=== PATIENT | female | born 1945 | race Asian ===

== ENCOUNTER 2019-11-20 07:51 | Day surgery (SDC) | payer OTHER, MEDICARE ==
[2019-11-18 16:10] VITALS: BMI 26.6
--- OUTSIDE RECORDS SUMMARY | 2019-11-20 07:55 | XMS ---
:1945 Author Organization [facility] Care Team Providers Name Role Phone ROE Vega Unavailable Unavailable MD Aliza Unavailable Unavailable Re-disclosure Warning The records that you are about to access may contain information from federally- assisted alcohol or drug abuse programs. If such information is present, then the following federally mandated warning applies: This information has been disclosed to you from records protected by federal confidentiality rules (42 CFR part 2). The federal rules prohibit you from making any further disclosure of this information unless further disclosure is expressly permitted by the written consent of the person to whom it pertains or as otherwise permitted by 42 CFR part 2. A general authorization for the release of medical or other information is NOT sufficient for this purpose. The Federal rules restrict any use of the information to criminally investigate or prosecute any alcohol or drug abuse patient.The records that you are about to access may contain highly sensitive health information, the redisclosure of which is protected by Article 27-F of the [facility] Public Health law. If you continue you may haveaccess to information: Regarding HIV / AIDS; Provided by facilities licensed or operated by the [facility] Office of Mental Health; or Provided by the [facility] Office for People With Developmental Disabilities. If such information is present, then the following [facility] mandated warning applies: This information has been disclosed to you from confidential records which are protected by state law. State law prohibits you from making any further disclosure of this information without the specific written consent of the person to whom it pertains, or as otherwise permitted by law. Any unauthorized further disclosure in violation of state law may result in a fine or long term sentence or both. A general authorization for the release of medical or other information is NOT sufficient authorization for further disclosure. Allergies and Adverse Reactions Type Description Substance Reaction Status Data Source(s ) Food allergy crab crab URTICARIA/HIVES [facility] Encounters Encounter Providers Location Date Indications Data Source(s ) Emergency Attender: Dottie 04/22/2019 R/O PUI ARR-AUTO W [facility] [place] Sil[facility] 10:02:00 AM Hospital EDT - 04/22/2019 11:00:00 AM EDT R/O PUI ARR-AUTO Patient discharged. Outpatient Attender: 01/11/2019 12:19:00 PANCREATIC LESIO N [place] Georgette Abrams PM EST Hospita l PANCREATIC LESION Outpatient Attender: Georgette 01/02/2019 07:07:00 AM [facility] Aliza KUMAR Outpatient Attender: Georgette 12/25/2018 01:59:00 PM [facility] Aliza KUMAR Medications Medication Brand Start Product Dose Route Administrative Pharmacy [facility] Indications Reaction Description Data Name Date Form Instructions Instructions Source(s) doxycycline Doxycy 04/21/ CAPSULE, 100 ORAL active White hyclate 100 palacio 2020 DELAYED mg Plai ns MG Oral Hyclat 10:58: RELEASE Hospi ruben Capsule e 00 AM [Vibramycin EDT ] Doxycycline Hyclate Insurance Providers Payer name Policy type Policy ID Covered Covered constitution party's Policy P rowdy / Coverage constitution party ID relationship to [place] Inf ormation type [place] MEDICARE [id number] SP [id number] J23 [facility] [id number] SP [id number] CARE OPTIONS MEDICARE [id number] SP [id number] [place] [id number] SP [id number] HEALTHCARE (MEDICARE) MEDICARE [id number] SP [id number] J23 [facility] [id number] PT [id number] CARE [employer] MEDICARE [id number] PT [id number] J23 Problems, Conditions, and Diagnoses Code Display Name Description Problem Type Effective Dates Data Source(s) E78.5 Hyperlipidemia, E78.5 Diagnosis 04/22/2019 [facility] ins unspecified 10:22:00 AM EDT Hospital I10 Essential (primary) I10 Diagnosis 04/22/2019 [place] hypertension 10:22:00 AM EDT Hospita l E11.9 Type 2 diabetes E11.9 Diagnosis 04/22/2019 [facility] ins mellitus without 10:22:00 AM EDT Hos pital complications R05 Cough R05 Diagnosis 04/22/2019 [place] 10:22:00 AM EDT Hospital Z03.89 Encounter for Z03.89 Diagnosis 01/11/2019 [facility] observation for other 12:19:00 PM T Hospital suspected diseases and conditions ruled out Surgeries/Procedures Procedure Description Date Indications Data Source(s) Plain chest X-ray 04/22/2019 [facility] (procedure) 12:00:00 AM EDT Results ID Date Data Source [id number] 11/16/2019 12:59:00 PM EDT [facility] Name Value Range Interpretation Description Data Sup porting Code Source(s) Document(s ) SARS [facility] coronavirus 2 RNA This lab was ordered by NICOLE gonzáles [facility] and reported by [facility]. ID Date Data Source [id number] 04/22/2019 10:11:00 AM EDT [facility] International Marketing Manager:CONY BARRERA Name Value Range Interpretation Description Data Sup porting Code Source(s) Document(s ) Glucose 196 mg/dL [place] [Mass/volume] [facility] in Capillary blood by Glucometer Procedure Social History Code Duration Value Status Description Data Source(s ) Smoking 04/22/2019 Never smoked completed Never smoked [facility] ns 10:28:00 AM EDT tobacco tobacco (finding) Ho spital (finding) Vital Signs ID Date Data Source UNK Name Value Range Interpretation Code Description Data Source(s) Diastolic blood 91 mm[Hg] 91 mm[Hg] Health system pressure Hospital Systolic blood 151 mm[Hg] 151 mm[Hg] [facility] pressure Hospital Respiratory rate 18 /min 18 /min [facility] Heart rate 89 /min 89 /min [facility] Body temperature 36.73293 36.98727 [facility]ony [facility] Body temperature 98.0 [degF] 98.0 [degF] [facility] Body mass index 24.0 kg/m2 24.0 kg/m2 [facility] ins (BMI) [Ratio] Hospital Body weight 119.25 119.25 [lb_av] [facility] ins [lb_av] Hospital
[2019-11-20] MEDS: CYCLOPENTOLATE 2% OPHTH SOLN 2 ML BOTTLE ONE ×3 (08:45→08:55)
[2019-11-20] MEDS: TROPICAMIDE 1% OPHTH SOLN 15 ML BOTTLE ONE ×3 (08:45→08:55)
[2019-11-20] MEDS: CIPROFLOXACIN 0.3% EYE DROPS 5 ML BOTTLE ONE ×3 (08:45→08:55)
[2019-11-20] MEDS: PHENYLEPHRINE 2.5% OPHTH SOLN 15 ML BOTTLE ONE ×3 (08:45→08:55)
[2019-11-20] MEDS ORDERED: MIDAZOLAM HCL 2 MG/2 ML SINGLE DOSE VIAL ONE (09:22)
[2019-11-20] MEDS ORDERED: ONDANSETRON 4 MG/2 ML VIAL ONE (09:22)
[2019-11-20] MEDS ORDERED: DESFLURANE GAS 240 ML BOTTLE IH ONE (09:30)
[2019-11-20] MEDS ORDERED: SEVOFLURANE 250 ML BTL ONE (09:30)
--- NOTE | 2019-11-20 10:24 | OP ---
DATE OF OPERATION: 11/20/2019 OPERATIVE PROCEDURE: Lens phacoemulsification with posterior chamber intraocular lens placement, right eye. PREOPERATIVE DIAGNOSIS: Visually significant cataract of right eye. POSTOPERATIVE DIAGNOSIS: Visually significant cataract of right eye. SURGEON: Cristian Morgan M.D. ANESTHESIA: MAC. PROCEDURE: The patient was brought to the operating room and placed under monitored anesthesia care by Anesthesia. A drop of tetracaine was then placed over the right eye. The patient was then prepped and draped in the usual sterile manner. A speculum was then placed over the right eye. The eye was then well irrigated with copious amounts of BSS (balanced salt solution). The operating microscope was then moved into position. A paracentesis was performed using a 15-degree blade. At this point 0.5 mL of 1% preservative-free lidocaine was injected into the anterior chamber. Amvisc Plus was then injected into the anterior chamber. A clear corneal incision was then formed using a 2.2-mm keratome. A capsulorrhexis was then performed in a continuous circular fashion beginning with a cystotome completed with a Utrata forceps. Hydrodissection was then performed using BSS on a cannula. The phaco probe was then introduced through the corneal wound and the cataract was removed using the phaco chop technique. Approximately 3 seconds of absolute phaco time was used. The remaining cortex was then removed using irrigation and aspiration with an I/A probe. The capsule was then filled with regular Amvisc and the capsule was noted to be intact. A previously selected foldable posterior chamber intraocular lens was then injected into the capsule through the corneal wound using a lens injector. It was then dialed into position using a Sinskey hook. The Amvisc was then removed using irrigation and aspiration. Miostat was then injected through the paracentesis to constrict the pupil. The paracentesis and corneal wound were then hydrated and noted to be watertight. A drop of Maxitrol was then placed over the eye. The speculum was removed and clear shield was taped over the eye. The patient tolerated the procedure well and there were no surgical complications. The patient was asked to follow up in my office the next day. CRISTIAN MORGAN M.D. ASHOK/[id number]
[2019-11-20 10:29] VITALS: TEMP 98.9
[2019-11-20 10:46] VITALS: BP 128/69; PULSE 62
[2019-11-20] MEDS ORDERED: LIDOCAINE 1% P/F 10 MG/ML VIAL ONE (11:37)
[2019-11-20] MEDS ORDERED: TETRACAINE 0.5% OPHTH SOLN 2 ML BOTTLE ONE (11:37)
[2019-11-20] MEDS ORDERED: NEO/POLYMYX B SULF/DEXAMETH OPHTHALMIC 5ML BOTTLE ONE (11:38)
[2019-11-20] MEDS ORDERED: CARBACHOL 0.01% INTRA-OCULAR 1.5 ML VIAL ONE (11:38)
[2019-11-20] MEDS ORDERED: BSS (NA/CA/MG/K) BALANCED SALT SOLUTION OPHTH SOLN 15 ML BOTTLE ONE (11:38)
== END 2019-11-20 10:50 | disposition home or self-care (01) ==
LOC: FASU 07:51
PROVIDERS: ATTEND Ophthalmology
PROC: 08RJ3JZ Replacement of Right Lens with Synthetic Substitute, Percutaneous Approach (ICD-10-PCS; principal; 2019-11-20 09:50)
DX: H26.8 Other specified cataract (principal)
CPT/HCPCS: 82962

== ENCOUNTER 2019-12-11 06:59 | Day surgery (SDC) | payer OTHER, MEDICARE ==
--- OUTSIDE RECORDS SUMMARY | 2019-11-27 15:13 | XMS ---
:1945 Author Organization [facility] Care Team Providers Name Role Phone ROE [...] is protected by Article 27-F of the [facility] Public Health law. If you continue you may haveaccess to information: Regarding HIV / AIDS; Provided by facilities licensed or operated by the [facility] Office of Mental Health; or Provided by the [facility] Office for People With Developmental Disabilities. If such information is present, then the following [facility] mandated warning applies: This information has [...] law may result in a fine or retirement sentence or both. A general authorization for the release of medical or other information is NOT sufficient authorization for further disclosure. Allergies and Adverse Reactions Type Description Substance Reaction Status Data Source(s ) Food allergy crab crab URTICARIA/HIVES [facility] Encounters Encounter Providers Location Date Indications Data Source(s ) Emergency Attender: Dottie 04/22/2019 R/O PUI ARR-AUTO W sajan [place] Silvia 10:02:00 AM Hospital EDT - 04/22/2019 11:00:00 AM EDT R/O PUI ARR-AUTO Patient discharged. Outpatient Attender: 01/11/2019 12:19:00 PANCREATIC LESIO N [place] Georgette Abrams PM EST Hospita l PANCREATIC LESION Outpatient Attender: Georgette 01/02/2019 07:07:00 AM [facility] Aliza KUMAR Outpatient Attender: Georgette 12/25/2018 01:59:00 PM [facility] Aliza KUMAR Medications Medication Brand Start Product Dose Route Administrative Pharmacy [facility] Indications Reaction Description Data Name Date Form Instructions Instructions Source(s) doxycycline Doxycy 04/21/ CAPSULE, 100 ORAL active White hyclate 100 palacio 2020 DELAYED mg Plai ns MG Oral Hyclat 10:58: RELEASE Hospi ruben Capsule e 00 AM [Vibramycin EDT ] Doxycycline Hyclate Insurance Providers Payer name Policy type Policy ID Covered Covered democrat's Policy P rowdy / Coverage democrat ID relationship to [place] Inf ormation type [place] MEDICARE [id number] SP [id number] J23 [facility] [id number] SP [id number] CARE OPTIONS MEDICARE [id number] SP [id number] [id number] SP [id number] HEALTHCARE (MEDICARE) MEDICARE [id number] SP [id number] J23 [facility] [id number] PT [id number] CARE [employer] MEDICARE [id number] PT [id number] J23 Problems, Conditions, and Diagnoses Code Display Name Description Problem Type Effective Dates Data Source(s) E78.5 Hyperlipidemia, E78.5 Diagnosis 04/22/2019 [facility] ins unspecified 10:22:00 AM EDT Hospital I10 Essential (primary) I10 Diagnosis 04/22/2019 [place] hypertension 10:22:00 AM EDT Hospita l E11.9 Type 2 diabetes E11.9 Diagnosis 04/22/2019 [facility] ins mellitus without 10:22:00 AM EDT Hos pital complications R05 Cough R05 Diagnosis 04/22/2019 [place] 10:22:00 AM EDT Hospital Z03.89 Encounter for Z03.89 Diagnosis 01/11/2019 [facility] observation for other 12:19:00 PM T Hospital suspected diseases and conditions ruled out Surgeries/Procedures Procedure Description Date Indications Data Source(s) Plain chest X-ray 04/22/2019 [facility] (procedure) 12:00:00 AM EDT Results ID Date Data Source [id number] 11/16/2019 12:59:00 PM EDT [facility] Name Value Range Interpretation Description Data Sup porting Code Source(s) Document(s ) SARS [facility] coronavirus 2 RNA This lab was ordered by NICOLE gonzáles [facility] and reported by [facility]. ID Date Data Source [id number] 04/22/2019 10:11:00 AM EDT [facility] Principal Cloud Architect:CONY BARRERA Name Value Range Interpretation Description Data Sup porting Code Source(s) Document(s ) Glucose 196 mg/dL [place] [Mass/volume] [facility] in Capillary blood by Glucometer Procedure Social History Code Duration Value Status Description Data Source(s ) Smoking 04/22/2019 Never smoked completed Never smoked [facility] ns 10:28:00 AM EDT tobacco tobacco (finding) Ho spital (finding) Vital Signs ID Date Data Source UNK Name Value Range Interpretation Code Description Data Source(s) Diastolic blood 91 mm[Hg] 91 mm[Hg] [facility] pressure Hospital Systolic blood 151 mm[Hg] 151 mm[Hg] [facility] pressure Hospital Respiratory rate 18 /min 18 /min [facility] Heart rate 89 /min 89 /min [facility] Body temperature 36.85677 36.40946 Melony [facility] Body temperature 98.0 [degF] 98.0 [degF] [facility] Body mass index 24.0 kg/m2 24.0 kg/m2 [facility] ins (BMI) [Ratio] Hospital Body weight 119.25 119.25 [lb_av] Storm[facility] ins [lb_av] Hospital
[2019-12-04 16:54] VITALS: BMI 26.6
--- OUTSIDE RECORDS SUMMARY | 2019-12-11 07:12 | XMS ---
:1945 Author Organization [facility] Care Team Providers Name Role Phone [...] is protected by Article 27-F of the [facility] Public Health law. If you continue you may haveaccess to information: Regarding HIV / AIDS; Provided by facilities licensed or operated by the [facility] Office of Mental Health; or Provided by the [facility] Office for People With Developmental Disabilities. If such information is present, then the following [facility] mandated warning applies: This information has been [...] law may result in a fine or halfway sentence or both. A general authorization for the release of medical or other information is NOT sufficient authorization for further disclosure. Allergies and Adverse Reactions Type Description Substance Reaction Status Data Source(s ) Food allergy crab crab URTICARIA/HIVES [facility] Encounters Encounter Providers Location Date Indications Data Source(s ) Emergency Attender: Dottie 04/22/2019 R/O PUI ARR-AUTO W [facility] Silvia 10:02:00 AM Hospital EDT - 04/22/2019 11:00:00 AM EDT R/O PUI ARR-AUTO Patient discharged. Outpatient Attender: 01/11/2019 12:19:00 PANCREATIC LESIO N [place] Georgette Abrams PM EST Hospita l PANCREATIC LESION Outpatient Attender: Georgette 01/02/2019 07:07:00 AM [facility] Aliza KUMAR Outpatient Attender: Georgette 12/25/2018 01:59:00 PM [facility] Aliza KUMAR Medications Medication Brand Start Product Dose Route Administrative Pharmacy [facility] Indications Reaction Description Data Name Date Form Instructions Instructions Source(s) doxycycline Doxycy 04/21/ CAPSULE, 100 ORAL active White hyclate 100 palacio 2020 DELAYED mg Plai ns MG Oral Hyclat 10:58: RELEASE Hospi ruben Capsule e 00 AM [Vibramycin EDT ] Doxycycline Hyclate Insurance Providers Payer name Policy type Policy ID Covered Covered green party's Policy P rowdy / Coverage green party ID relationship to [place] Inf ormation type [place] MEDICARE [id number] SP [id number] J23 [facility] [id number] SP [id number] CARE [employer]IONS MEDICARE [id number] SP [id number] J23 MEDICARE [id number] SP [id number] [place] [id number] SP [id number] HEALTHCARE (MEDICARE) MEDICARE [id number] SP [id number] J23 [facility] [id number] PT [id number] CARE [employer] MEDICARE [id number] PT [id number] J23 Problems, Conditions, and Diagnoses Code Display Name Description Problem Type Effective Dates Data Source(s) E78.5 Hyperlipidemia, E78.5 Diagnosis 04/22/2019 [facility] ins unspecified 10:22:00 AM EDT Hospital I10 Essential (primary) I10 Diagnosis 04/22/2019 [place] hypertension 10:22:00 AM EDT Hospita l E11.9 Type 2 diabetes E11.9 Diagnosis 04/22/2019 [facility] ins mellitus without 10:22:00 AM EDT Hos pital complications R05 Cough R05 Diagnosis 04/22/2019 [place] 10:22:00 AM EDT Hospital Z03.89 Encounter for Z03.89 Diagnosis 01/11/2019 [facility] observation for other 12:19:00 PM ES T Hospital suspected diseases and conditions ruled out Surgeries/Procedures Procedure Description Date Indications Data Source(s) Plain chest X-ray 04/22/2019 [facility] Hospital (procedure) 12:00:00 AM EDT Results ID Date Data Source [id number] 12/07/2019 09:12:00 AM EDT [facility] Name Value Range Interpretation Description Data Sup porting Code Source(s) Document(s ) SARS [facility] coronavirus 2 RNA This lab was ordered by [facility] and reported by [facility]. ID Date Data Source [id number] 11/16/2019 12:59:00 PM EDT [facility] Name Value Range Interpretation Description Data Sup porting Code Source(s) Document(s ) SARS [facility] coronavirus 2 RNA This lab was ordered by [facility] and reported by [facility]. ID Date Data Source [id number] 04/22/2019 10:11:00 AM EDT [facility] Steam Press Operator:CONY BARRERA Name Value Range Interpretation Description Data Sup porting Code Source(s) Document(s ) Glucose 196 mg/dL [place] [Mass/volume] [facility] in Capillary blood by Glucometer Procedure Social History Code Duration Value Status Description Data Source(s ) Smoking 04/22/2019 Never smoked completed Never smoked [facility] 10:28:00 AM EDT tobacco tobacco (finding) Ho spital (finding) Vital Signs ID Date Data Source UNK Name Value Range Interpretation Code Description Data Source(s) Diastolic blood 91 mm[Hg] 91 mm[Hg] [facility] pressure Hospital Systolic blood 151 mm[Hg] 151 mm[Hg] [facility] pressure Hospital Respiratory rate 18 /min 18 /min [facility] Heart rate 89 /min 89 /min [facility] Body temperature 36.74405 36.74178 Melony [facility] Body temperature 98.0 [degF] 98.0 [degF] [facility] Body mass index 24.0 kg/m2 24.0 kg/m2 [facility] ins (BMI) [Ratio] Hospital Body weight 119.25 119.25 [lb_av] [facility] ins [lb_av] Hospital
[2019-12-11] MEDS: CYCLOPENTOLATE 2% OPHTH SOLN 2 ML BOTTLE ONE ×3 (07:35→07:45)
[2019-12-11] MEDS: PHENYLEPHRINE 2.5% OPHTH SOLN 15 ML BOTTLE ONE ×3 (07:35→07:45)
[2019-12-11] MEDS: TROPICAMIDE 1% OPHTH SOLN 15 ML BOTTLE ONE ×3 (07:35→07:45)
[2019-12-11] MEDS: CIPROFLOXACIN 0.3% EYE DROPS 5 ML BOTTLE ONE ×3 (07:35→07:45)
[2019-12-11] MEDS ORDERED: MIDAZOLAM HCL 2 MG/2 ML SINGLE DOSE VIAL ONE (08:42)
[2019-12-11 09:32] VITALS: TEMP 97.9
[2019-12-11 09:45] VITALS: BP 122/65; PULSE 68
--- NOTE | 2019-12-12 13:03 | OP ---
DATE OF OPERATION: 12/11/2019 OPERATIVE PROCEDURE: Lens Phacoemulsification with Posterior Chamber Intraocular Lens Placement, Right Eye PREOPERATIVE DIAGNOSIS: Visually Significant Cataract of Right Eye POSTOPERATIVE DIAGNOSIS: Visually Significant Cataract of Right Eye SURGEON: Cristian Morgan M.D. ANESTHESIA: MAC PROCEDURE: The patient was brought to the operating room and placed under monitored anesthesia care by Anesthesia. A drop of Tetracaine was then placed over the right eye. The patient was then prepped and draped in the usual sterile manner. A speculum was then placed over the right eye. The eye was then well irrigated with copious amounts of BSS (balanced salt solution). The operating microscope was then moved into position. A paracentesis was performed using a 15 degree blade. At this point 0.5 mL of 1% preservative free-lidocaine was injected into the anterior chamber. Amvisc plus was then injected into the anterior chamber. A clear corneal incision was then formed using a 2.2 mm keratome. A capsulorrhexis was then performed in a continuous circular fashion beginning with a cystotome completed with an Utratas forceps. Hydrodissection was then performed using BSS on a cannula. The phaco probe was then introduced through the corneal wound and the cataract was removed using the phaco chop technique. Approximately 3 seconds of absolute phaco time was used. The remaining cortex was then removed using irrigation and aspiration with an I/A probe. The capsule was then filled with regular Amvisc and the capsule was noted to be intact. A previously selected foldable posterior chamber intraocular lens was then injected into the capsule through the corneal wound using a lens injector. It was then dialed into position using a Sinskey hook. The Amvisc was then removed using irrigation and aspiration. Miostat was then injected through the paracentesis to constrict the pupil. The paracentesis and corneal wound were then hydrated and noted to be water tight. A drop of Maxitrol was then placed over the eye. The speculum was removed and clear shield was taped over the eye. The patient tolerated the procedure well and there were no surgical complications. The patient was asked to follow up in my office the next day. CRISTIAN MORGAN M.D. ASHOK/[id number]
== END 2019-12-11 09:50 | disposition home or self-care (01) ==
LOC: FASU 06:59
PROVIDERS: ATTEND Ophthalmology
PROC: 08RK3JZ Replacement of Left Lens with Synthetic Substitute, Percutaneous Approach (ICD-10-PCS; principal; 2019-12-11 08:51)
DX: H26.8 Other specified cataract (principal)
CPT/HCPCS: 82962